=== PATIENT | female | born 1985 | race Caucasian/White ===

== ENCOUNTER 2017-11-27 07:27 | Inpatient (IN) | payer MEDICAID ==
[2017-11-27] MEDS: DIPHENHYDRAMINE 25 MG CAP PO (08:18)
[2017-11-27] MEDS: ACETAMINOPHEN 500 MG TAB PO ×2 (08:18→14:19)
[2017-11-27 08:50] LABS: ADD UMIC YES; UR AMORPHOUS CRYSTAL FEW /HPF (NONE SEEN); UR ASCORBIC ACID NEGATIVE (NEGATIVE); UR BACTERIA FEW /HPF (NONE SEEN); UR BILIRUBIN (Dip) NEGATIVE (NEGATIVE); UR BLOOD (Dip) 1+ mg/dL (NEGATIVE); UR CLARITY CLOUDY (CLEAR); UR COLOR YELLOW (YELLOW); UR GLUCOSE (Dip) NEGATIVE (NEGATIVE); UR KETONES (Dip) 1+ mg/dL (NEGATIVE); UR LEUKOCYTE ESTERASE (Dip) 3+ Leu/ul (NEGATIVE); UR NITRITE (Dip) NEGATIVE (NEGATIVE); UR RBC 1 /HPF (0-5); UR SPECIFIC GRAVITY (Dip) 1.014 (1.003-1.030); UR SQUAMOUS EPITHELIAL CELL FEW /HPF (FEW); UR TOTAL PROTEIN (Dip) 2+ mg/dl (NEGATIVE); UR UROBILINOGEN (Dip) 2+ mg/dL (NEGATIVE); UR WBC > 182 /HPF (0-5)
[2017-11-27 09:06] LABS: ABNORMAL IP MESSAGE 1; HEMATOCRIT 35.2 % (37.0-47.0); HEMOGLOBIN 12.9 g/dl (12.0-16.0); MEAN CORPUSCULAR HEMOGLOBIN 32.6 pg (29.0-33.0); MEAN CORPUSCULAR HGB CONC 36.6 g/dl (32.0-37.0); MEAN CORPUSCULAR VOLUME 88.9 fl (82.0-101.0); MEAN PLATELET VOLUME 12.2 fl (7.4-10.4); PLATELET COUNT 126 10^3/UL (140-415); RED BLOOD COUNT 3.96 10^6/ul (4.20-5.40); RED CELL DISTRIBUTION WIDTH 12.6 % (11.5-14.5)
[2017-11-27 09:06] LABS: WHITE BLOOD COUNT 15.9 10^3/ul (4.8-10.8)
[2017-11-27 09:16] LABS: ADD MAN DIFF? YES; POSITIVE DIFF @See below
[2017-11-27] MEDS: SOD CHLORIDE 0.9% 1,000 ML IV ×3 (09:34→18:06)
[2017-11-27] MEDS: CEFTRIAXONE 1 GM/50 ML (PMX) 50 ML IVPB ×2 (09:36→18:00)
[2017-11-27 09:58] LABS: BAND NEUTROPHILS #M 4.7 10^3/ul (0.0-0.6); BAND NEUTROPHILS % (M) 30 % (0-4); GIANT THROMBO% (M) 1 % (0-0); LYMPHOCYTES #M 0.4 10^3/ul (0.8-2.9); LYMPHOCYTES % (M) 3 % (15-51); MONOCYTE #M 0.3 10^3/ul (0.3-0.9); MONOCYTES % (M) 2 % (0-11); PLATELET ESTIMATE DECREASED; POLYCHROMASIA 2+ (0-0); SEG NEUT #M 11.1 10^3/ul (1.7-7.5); SEGMENTED NEUTROPHILS (M) % 65 % (39-77); SMUDGE%M 2 % (0-0)
[2017-11-27 10:41] LABS: ALANINE AMINOTRANSFERASE 32 IU/L (13-69); ALBUMIN 4.1 g/dl (3.3-4.9); ALBUMIN/GLOBULIN RATIO 1.05; ALKALINE PHOSPHATASE 95 IU/L (42-121); ANION GAP 18 (8-16); ASPARTATE AMINO TRANSFERASE 27 IU/L (15-46); BILIRUBIN,INDIRECT 0.8 mg/dl (0-1.1); BILIRUBIN,TOTAL 0.8 mg/dl (0.2-1.3); BLOOD UREA NITROGEN 13 mg/dl (7-20); CALCIUM 9.3 mg/dl (8.4-10.2); CARBON DIOXIDE 20 mmol/L (21-31); CHLORIDE 97 mmol/L (97-110); GLUCOSE 102 mg/dl (70-220); SODIUM 132 mmol/L (135-144)
[2017-11-27] MEDS: HYDROmorphONE 1 MG/ML SYG IV (14:42)
[2017-11-27] MEDS: ONDANSETRON 4 MG INJ IV (17:37)
[2017-11-27] MEDS: ACETAMINOPHEN 325 MG TAB PO ×2 (17:37→23:33)
[2017-11-27] MEDS ORDERED: NACL 0.9% 3 ML SYG IV (18:00)
[2017-11-27] MEDS ORDERED: ONDANSETRON 4 MG INJ IV (18:00)
[2017-11-28] MEDS: SOD CHLORIDE 0.9% 1,000 ML IV ×5 (01:34→20:17)
[2017-11-28 05:51] LABS: ABNORMAL IP MESSAGE 1; HEMATOCRIT 28.8 % (37.0-47.0); HEMOGLOBIN 10.2 g/dl (12.0-16.0); MEAN CORPUSCULAR HEMOGLOBIN 32.2 pg (29.0-33.0); MEAN CORPUSCULAR HGB CONC 35.4 g/dl (32.0-37.0); MEAN CORPUSCULAR VOLUME 90.9 fl (82.0-101.0); MEAN PLATELET VOLUME 12.1 fl (7.4-10.4); PLATELET COUNT 93 10^3/UL (140-415); RED BLOOD COUNT 3.17 10^6/ul (4.20-5.40); RED CELL DISTRIBUTION WIDTH 12.9 % (11.5-14.5)
[2017-11-28 05:51] LABS: WHITE BLOOD COUNT 6.2 10^3/ul (4.8-10.8)
[2017-11-28 05:57] LABS: ADD MAN DIFF? YES; POSITIVE DIFF @See below
[2017-11-28 06:23] LABS: MAGNESIUM 1.9 mg/dl (1.7-2.5)
[2017-11-28 06:23] LABS: PHOSPHORUS 3.1 mg/dl (2.5-4.9)
[2017-11-28 06:38] LABS: ALANINE AMINOTRANSFERASE 54 IU/L (13-69); ALBUMIN 2.5 g/dl (3.3-4.9); ALKALINE PHOSPHATASE 109 IU/L (42-121); ANION GAP 13 (8-16); ASPARTATE AMINO TRANSFERASE 59 IU/L (15-46); BILIRUBIN,INDIRECT 0.4 mg/dl (0-1.1); BILIRUBIN,TOTAL 0.4 mg/dl (0.2-1.3); BLOOD UREA NITROGEN 9 mg/dl (7-20); CALCIUM 7.5 mg/dl (8.4-10.2); CARBON DIOXIDE 18 mmol/L (21-31); CHLORIDE 110 mmol/L (97-110); CREATININE 0.82 mg/dl (0.44-1.00); GLUCOSE 92 mg/dl (70-220); SODIUM 138 mmol/L (135-144); TOTAL PROTEIN 5.6 g/dl (6.1-8.1)
[2017-11-28 09:12] LABS: BAND NEUTROPHILS #M 1.3 10^3/ul (0.0-0.6); BAND NEUTROPHILS % (M) 21 % (0-4); BASOPHILS % (M) 1 % (0-2); EOSINOPHILS % (M) 1 % (0-7); GIANT THROMBO% (M) 6 % (0-0); LYMPHOCYTES #M 0.3 10^3/ul (0.8-2.9); LYMPHOCYTES % (M) 5 % (15-51); PLATELET ESTIMATE DECREASED; SEG NEUT #M 4.5 10^3/ul (1.7-7.5); SEGMENTED NEUTROPHILS (M) % 72 % (39-77); SMUDGE%M 5 % (0-0)
[2017-11-28] MEDS: POTASSIUM CHLORIDE (SR) 20 MEQ TAB PO (11:48)
[2017-11-28] MEDS: ALBUTEROL 0.083% (NEB) 2.5 MG/3 ML AMP HHN ×2 (14:23→17:11)
[2017-11-28] MEDS: ACETAMINOPHEN 325 MG TAB PO ×2 (15:53→22:13)
[2017-11-28] MEDS: CEFTRIAXONE 1 GM/50 ML (PMX) 50 ML IVPB (17:37)
[2017-11-29] MEDS: SOD CHLORIDE 0.9% 1,000 ML IV ×4 (01:30→16:18)
[2017-11-29 06:24] LABS: WHITE BLOOD COUNT 4.2 10^3/ul (4.8-10.8)
[2017-11-29 06:24] LABS: ABNORMAL IP MESSAGE 1; HEMATOCRIT 29.3 % (37.0-47.0); HEMOGLOBIN 10.4 g/dl (12.0-16.0); MEAN CORPUSCULAR HEMOGLOBIN 32.5 pg (29.0-33.0); MEAN CORPUSCULAR HGB CONC 35.5 g/dl (32.0-37.0); MEAN CORPUSCULAR VOLUME 91.6 fl (82.0-101.0); MEAN PLATELET VOLUME 12.2 fl (7.4-10.4); PLATELET COUNT 101 10^3/UL (140-415)
[2017-11-29 06:26] LABS: ADD MAN DIFF? YES; POSITIVE DIFF @See below
[2017-11-29 07:05] LABS: MAGNESIUM 1.9 mg/dl (1.7-2.5)
[2017-11-29 07:05] LABS: PHOSPHORUS 3.2 mg/dl (2.5-4.9)
[2017-11-29 07:07] LABS: ANION GAP 11 (8-16); BLOOD UREA NITROGEN 4 mg/dl (7-20); CALCIUM 7.9 mg/dl (8.4-10.2); CARBON DIOXIDE 21 mmol/L (21-31); CHLORIDE 110 mmol/L (97-110); CREATININE 0.82 mg/dl (0.44-1.00); GLUCOSE 78 mg/dl (70-220); POTASSIUM 3.4 mmol/L (3.5-5.1); SODIUM 139 mmol/L (135-144)
[2017-11-29] MEDS: ACETAMINOPHEN 325 MG TAB PO ×3 (08:39→19:59)
[2017-11-29] MEDS: DOCUSATE SODIUM 100 MG CAP PO ×2 (09:01→19:59)
[2017-11-29 09:11] LABS: ANISOCYTOSIS 1+ (0-0); BAND NEUTROPHILS #M 0.1 10^3/ul (0.0-0.6); BAND NEUTROPHILS % (M) 3 % (0-4); BASOPHILS % (M) 1 % (0-2); GIANT THROMBO% (M) 7 % (0-0); LYMPHOCYTES #M 0.5 10^3/ul (0.8-2.9); LYMPHOCYTES % (M) 12 % (15-51); MONOCYTE #M 0.1 10^3/ul (0.3-0.9); MONOCYTES % (M) 3 % (0-11); PLATELET MORPHOLOGY COMMENT @See below; POLYCHROMASIA 1+ (0-0); REACTIVE LYMPHOCYTES% (M) 1 % (0-0); SEG NEUT #M 3.4 10^3/ul (1.7-7.5); SEGMENTED NEUTROPHILS (M) % 80 % (39-77); SMUDGE%M 2 % (0-0)
[2017-11-29] MEDS: POTASSIUM CHLORIDE (SR) 20 MEQ TAB PO (12:12)
[2017-11-29] MEDS: PRENATAL VITAMIN PO (12:12)
[2017-11-29 13:22] LABS: ADD UMIC NO; UR ASCORBIC ACID NEGATIVE (NEGATIVE); UR BILIRUBIN (Dip) NEGATIVE (NEGATIVE); UR BLOOD (Dip) NEGATIVE (NEGATIVE); UR CLARITY CLEAR (CLEAR); UR COLOR STRAW (YELLOW); UR GLUCOSE (Dip) NEGATIVE (NEGATIVE); UR KETONES (Dip) NEGATIVE (NEGATIVE); UR LEUKOCYTE ESTERASE (Dip) NEGATIVE Leu/ul (NEGATIVE); UR NITRITE (Dip) NEGATIVE (NEGATIVE); UR SPECIFIC GRAVITY (Dip) 1.004 (1.003-1.030); UR TOTAL PROTEIN (Dip) NEGATIVE (NEGATIVE); UR UROBILINOGEN (Dip) 1+ mg/dL (NEGATIVE)
[2017-11-29] MEDS: CEFTRIAXONE 1 GM/50 ML (PMX) 50 ML IVPB (18:11)
[2017-11-29] MEDS ORDERED: morphine 2 MG INJ (20:36)
[2017-11-29] MEDS: morphine 2 MG INJ IV (20:42)
[2017-11-30] MEDS: SOD CHLORIDE 0.9% 1,000 ML IV ×3 (05:51→19:36)
[2017-11-30] MEDS: ACETAMINOPHEN 325 MG TAB PO ×2 (05:53→14:36)
[2017-11-30 05:54] LABS: ADD MAN DIFF? NO
[2017-11-30 06:01] LABS: BASOPHILS % 0.8 % (0.0-2.0); EOSINOPHILS # 0.1 10^3/ul (0.0-0.5); EOSINOPHILS % 1.9 % (0.0-7.0); HEMATOCRIT 31.8 % (37.0-47.0); HEMOGLOBIN 11.3 g/dl (12.0-16.0); LYMPHOCYTES # 0.9 10^3/ul (0.8-2.9); LYMPHOCYTES % 17.7 % (15.0-51.0); MEAN CORPUSCULAR HEMOGLOBIN 32.1 pg (29.0-33.0); MEAN CORPUSCULAR HGB CONC 35.5 g/dl (32.0-37.0); MEAN CORPUSCULAR VOLUME 90.3 fl (82.0-101.0); MEAN PLATELET VOLUME 12.1 fl (7.4-10.4); MONOCYTE # 0.4 10^3/ul (0.3-0.9); MONOCYTES % 7.3 % (0.0-11.0); NEUTROPHIL # 3.8 10^3/ul (1.6-7.5); PLATELET COUNT 113 10^3/UL (140-415); RED BLOOD COUNT 3.52 10^6/ul (4.20-5.40); RED CELL DISTRIBUTION WIDTH 12.9 % (11.5-14.5)
[2017-11-30 06:01] LABS: WHITE BLOOD COUNT 5.3 10^3/ul (4.8-10.8)
[2017-11-30 06:12] LABS: POSITIVE DIFF @See below
[2017-11-30 06:15] LABS: ANION GAP 12 (8-16); BLOOD UREA NITROGEN 6 mg/dl (7-20); CALCIUM 8.6 mg/dl (8.4-10.2); CARBON DIOXIDE 23 mmol/L (21-31); CHLORIDE 106 mmol/L (97-110); GLUCOSE 78 mg/dl (70-220); POTASSIUM 3.7 mmol/L (3.5-5.1); SODIUM 137 mmol/L (135-144)
[2017-11-30 06:45] LABS: PHOSPHORUS 2.6 mg/dl (2.5-4.9)
[2017-11-30 06:45] LABS: MAGNESIUM 1.6 mg/dl (1.7-2.5)
[2017-11-30] MEDS: PRENATAL VITAMIN PO (08:38)
[2017-11-30] MEDS: DOCUSATE SODIUM 100 MG CAP PO ×2 (08:38→21:04)
[2017-11-30] MEDS: morphine 2 MG INJ IV (14:36)
[2017-11-30 16:15] LABS: LACTIC ACID 1.2 mmol/L (0.5-2.0)
[2017-11-30] MEDS ORDERED: MAGNESIUM SULFATE 1 GM/D5W 100 ML IVPB (16:30)
[2017-11-30] MEDS ORDERED: morphine LIQ (10 MG/5 ML) CUP PO (16:30)
[2017-11-30] MEDS ORDERED: LABETALOL HCL 20MG INJ IV ×2 (16:30→17:00)
[2017-11-30 16:33] LABS: Allen Test ACCEPTAB; Arterial Base Excess -3.2 mmol/L (-3.0-3); Arterial Blood Gas Oxygen Sat 99.2 mmHG (95.0-98.0); Arterial COHb 0.3 % (0.0-3.0); Arterial Fraction of Oxyhgb 98.8 % (93.0-99.0); Arterial HCO3 19.4 mmol/L (22.0-26.0); Arterial MetHb 0.1 % (0.0-1.5); Arterial Total Hemglobin 12.8 g/dl (12.0-18.0); MODE MASK - SIMPLE; Site Right Radial
[2017-11-30] MEDS: LABETALOL 100 MG TAB PO (16:45)
[2017-11-30] MEDS: MAGNESIUM SULFATE 1 GM/D5W 100 ML IVPB (16:51)
[2017-11-30] MEDS ORDERED: LABETALOL 200 MG TAB PO (17:00)
[2017-11-30 17:17] LABS: D-DIMER 2199.28 ng/ml (<460)
[2017-11-30 17:39] LABS: TROPONIN-I < 0.012 ng/ml (0.00-0.12)
[2017-11-30] MEDS: CEFTRIAXONE 1 GM/50 ML (PMX) 50 ML IVPB (19:39)
[2017-12-01] MEDS: SOD CHLORIDE 0.9% 1,000 ML IV ×2 (01:08→09:52)
[2017-12-01] MEDS: ACETAMINOPHEN 325 MG TAB PO ×3 (03:03→20:13)
[2017-12-01 06:27] LABS: WHITE BLOOD COUNT 5.9 10^3/ul (4.8-10.8)
[2017-12-01 06:27] LABS: HEMATOCRIT 28.1 % (37.0-47.0); HEMOGLOBIN 9.9 g/dl (12.0-16.0); MEAN CORPUSCULAR HEMOGLOBIN 31.9 pg (29.0-33.0); MEAN CORPUSCULAR HGB CONC 35.2 g/dl (32.0-37.0); MEAN CORPUSCULAR VOLUME 90.6 fl (82.0-101.0); MEAN PLATELET VOLUME 11.5 fl (7.4-10.4); PLATELET COUNT 121 10^3/UL (140-415); RED CELL DISTRIBUTION WIDTH 12.8 % (11.5-14.5)
[2017-12-01 06:49] LABS: ADD MAN DIFF? YES; POSITIVE DIFF @See below
[2017-12-01 07:02] LABS: ANION GAP 11 (8-16); BLOOD UREA NITROGEN 7 mg/dl (7-20); CALCIUM 8.5 mg/dl (8.4-10.2); CARBON DIOXIDE 24 mmol/L (21-31); CHLORIDE 106 mmol/L (97-110); CREATININE 0.82 mg/dl (0.44-1.00); GLUCOSE 86 mg/dl (70-220); MAGNESIUM 1.9 mg/dl (1.7-2.5); POTASSIUM 3.5 mmol/L (3.5-5.1); SODIUM 137 mmol/L (135-144)
[2017-12-01] MEDS: DOCUSATE SODIUM 100 MG CAP PO ×2 (08:45→20:13)
[2017-12-01] MEDS: PRENATAL VITAMIN PO (08:45)
[2017-12-01 09:36] LABS: BAND NEUTROPHILS #M 0.2 10^3/ul (0.0-0.6); BAND NEUTROPHILS % (M) 5 % (0-4); BASOPHILS % (M) 1 % (0-2); EOSINOPHILS % (M) 3 % (0-7); GIANT THROMBO% (M) 7 % (0-0); LYMPHOCYTES #M 1.7 10^3/ul (0.8-2.9); LYMPHOCYTES % (M) 30 % (15-51); MONOCYTE #M 0.4 10^3/ul (0.3-0.9); MONOCYTES % (M) 8 % (0-11); PLATELET ESTIMATE DECREASED; REACTIVE LYMPHOCYTES #M 0.1 10^3/ul (0.0-0.0); REACTIVE LYMPHOCYTES% (M) 2 % (0-0); SEGMENTED NEUTROPHILS (M) % 51 % (39-77); SMUDGE%M 4 % (0-0)
[2017-12-01] MEDS: CEFTRIAXONE 1 GM/50 ML (PMX) 50 ML IVPB (18:25)
[2017-12-02] MEDS: SOD CHLORIDE 0.9% 1,000 ML IV ×3 (01:12→17:08)
[2017-12-02 07:02] LABS: ADD MAN DIFF? NO
[2017-12-02 07:07] LABS: WHITE BLOOD COUNT 7.4 10^3/ul (4.8-10.8)
[2017-12-02 07:07] LABS: BASOPHILS % 0.5 % (0.0-2.0); EOSINOPHILS # 0.1 10^3/ul (0.0-0.5); EOSINOPHILS % 1.9 % (0.0-7.0); HEMATOCRIT 28.8 % (37.0-47.0); HEMOGLOBIN 10.2 g/dl (12.0-16.0); LYMPHOCYTES # 1.9 10^3/ul (0.8-2.9); MEAN CORPUSCULAR HEMOGLOBIN 31.7 pg (29.0-33.0); MEAN CORPUSCULAR HGB CONC 35.4 g/dl (32.0-37.0); MEAN CORPUSCULAR VOLUME 89.4 fl (82.0-101.0); MEAN PLATELET VOLUME 11.6 fl (7.4-10.4); MONOCYTE # 0.5 10^3/ul (0.3-0.9); MONOCYTES % 7.2 % (0.0-11.0); NEUTROPHIL # 4.5 10^3/ul (1.6-7.5); PLATELET COUNT 132 10^3/UL (140-415); RED BLOOD COUNT 3.22 10^6/ul (4.20-5.40); RED CELL DISTRIBUTION WIDTH 12.5 % (11.5-14.5)
[2017-12-02 07:13] LABS: POSITIVE DIFF @See below
[2017-12-02 07:24] LABS: ANION GAP 14 (8-16); CARBON DIOXIDE 21 mmol/L (21-31); CHLORIDE 106 mmol/L (97-110); CREATININE 0.69 mg/dl (0.44-1.00); GLUCOSE 84 mg/dl (70-220); POTASSIUM 3.5 mmol/L (3.5-5.1); SODIUM 137 mmol/L (135-144)
[2017-12-02 08:00] LABS: BLOOD UREA NITROGEN 6 mg/dl (7-20); CALCIUM 8.6 mg/dl (8.4-10.2)
[2017-12-02] MEDS: PRENATAL VITAMIN PO (09:27)
[2017-12-02] MEDS: DOCUSATE SODIUM 100 MG CAP PO ×2 (09:27→20:50)
[2017-12-02] MEDS: ACETAMINOPHEN 325 MG TAB PO ×2 (13:45→20:49)
[2017-12-02] MEDS: PIPER-TAZO 3.375 GM IV (PMX) 100 ML IVPB ×2 (14:05→22:23)
[2017-12-03] MEDS: SOD CHLORIDE 0.9% 1,000 ML IV ×3 (05:52→21:38)
[2017-12-03] MEDS: PIPER-TAZO 3.375 GM IV (PMX) 100 ML IVPB ×3 (05:52→21:37)
[2017-12-03] MEDS: ACETAMINOPHEN 325 MG TAB PO ×3 (05:59→18:58)
[2017-12-03 06:05] LABS: ADD MAN DIFF? NO
[2017-12-03 06:12] LABS: BASOPHIL # 0.1 10^3/ul (0.0-0.1); BASOPHILS % 0.5 % (0.0-2.0); EOSINOPHILS # 0.3 10^3/ul (0.0-0.5); EOSINOPHILS % 2.4 % (0.0-7.0); HEMATOCRIT 29.2 % (37.0-47.0); HEMOGLOBIN 10.4 g/dl (12.0-16.0); LYMPHOCYTES # 2.2 10^3/ul (0.8-2.9); LYMPHOCYTES % 19.7 % (15.0-51.0); MEAN CORPUSCULAR HEMOGLOBIN 31.6 pg (29.0-33.0); MEAN CORPUSCULAR HGB CONC 35.6 g/dl (32.0-37.0); MEAN CORPUSCULAR VOLUME 88.8 fl (82.0-101.0); MEAN PLATELET VOLUME 11.5 fl (7.4-10.4); MONOCYTE # 0.6 10^3/ul (0.3-0.9); MONOCYTES % 5.2 % (0.0-11.0); NEUTROPHIL # 7.6 10^3/ul (1.6-7.5); NEUTROPHILS % 67.4 % (39.0-77.0); PLATELET COUNT 183 10^3/UL (140-415); RED BLOOD COUNT 3.29 10^6/ul (4.20-5.40); RED CELL DISTRIBUTION WIDTH 12.3 % (11.5-14.5)
[2017-12-03 06:12] LABS: WHITE BLOOD COUNT 11.2 10^3/ul (4.8-10.8)
[2017-12-03 06:32] LABS: ANION GAP 13 (8-16); BLOOD UREA NITROGEN 8 mg/dl (7-20); CALCIUM 8.7 mg/dl (8.4-10.2); CARBON DIOXIDE 23 mmol/L (21-31); CHLORIDE 106 mmol/L (97-110); CREATININE 0.76 mg/dl (0.44-1.00); GLUCOSE 94 mg/dl (70-220); POSITIVE DIFF @See below; POTASSIUM 3.4 mmol/L (3.5-5.1); SODIUM 139 mmol/L (135-144)
[2017-12-03] MEDS: DOCUSATE SODIUM 100 MG CAP PO ×2 (09:00→20:47)
[2017-12-03] MEDS: PRENATAL VITAMIN PO (09:34)
[2017-12-04] MEDS: PIPER-TAZO 3.375 GM IV (PMX) 100 ML IVPB ×3 (05:44→21:43)
[2017-12-04] MEDS: ACETAMINOPHEN 325 MG TAB PO ×3 (05:44→20:20)
[2017-12-04 06:34] LABS: ABNORMAL IP MESSAGE 1; HEMATOCRIT 28.9 % (37.0-47.0); HEMOGLOBIN 10.5 g/dl (12.0-16.0); MEAN CORPUSCULAR HEMOGLOBIN 32.4 pg (29.0-33.0); MEAN CORPUSCULAR HGB CONC 36.3 g/dl (32.0-37.0); MEAN CORPUSCULAR VOLUME 89.2 fl (82.0-101.0); MEAN PLATELET VOLUME 10.9 fl (7.4-10.4); PLATELET COUNT 216 10^3/UL (140-415); RED BLOOD COUNT 3.24 10^6/ul (4.20-5.40); RED CELL DISTRIBUTION WIDTH 12.2 % (11.5-14.5)
[2017-12-04 06:41] LABS: ADD MAN DIFF? YES; POSITIVE DIFF @See below
[2017-12-04 07:17] LABS: ANION GAP 13 (8-16); BLOOD UREA NITROGEN 8 mg/dl (7-20); CALCIUM 8.7 mg/dl (8.4-10.2); CARBON DIOXIDE 26 mmol/L (21-31); CHLORIDE 104 mmol/L (97-110); CREATININE 0.75 mg/dl (0.44-1.00); GLUCOSE 85 mg/dl (70-220); POTASSIUM 3.7 mmol/L (3.5-5.1); SODIUM 139 mmol/L (135-144)
[2017-12-04 07:49] LABS: ANISOCYTOSIS 1+ (0-0); BAND NEUTROPHILS #M 0.1 10^3/ul (0.0-0.6); BAND NEUTROPHILS % (M) 1 % (0-4); BASOPHIL #M 0.1 10^3/ul (0.0-0.0); BASOPHILS % (M) 1 % (0-2); EOSINOPHILS % (M) 3 % (0-7); GIANT THROMBO% (M) 3 % (0-0); LYMPHOCYTES #M 1.9 10^3/ul (0.8-2.9); LYMPHOCYTES % (M) 19 % (15-51); METAMYELOCYTES #M 0.1 10^3/ul (0.0-0.0); METAMYELOCYTES %M 1 % (0-0); MONOCYTE #M 0.2 10^3/ul (0.3-0.9); MONOCYTES % (M) 2 % (0-11); PLATELET ESTIMATE NORMAL; POLYCHROMASIA 1+ (0-0); SEG NEUT #M 7.3 10^3/ul (1.6-7.5); SEGMENTED NEUTROPHILS (M) % 73 % (39-77); SMUDGE%M 8 % (0-0)
[2017-12-04] MEDS: DOCUSATE SODIUM 100 MG CAP PO ×2 (08:16→20:20)
[2017-12-04] MEDS: PRENATAL VITAMIN PO (08:16)
[2017-12-04] MEDS: SOD CHLORIDE 0.9% 1,000 ML IV ×3 (09:08→22:28)
[2017-12-05] MEDS: SOD CHLORIDE 0.9% 1,000 ML IV ×2 (03:12→13:03)
[2017-12-05] MEDS: PIPER-TAZO 3.375 GM IV (PMX) 100 ML IVPB ×3 (05:36→21:14)
[2017-12-05] MEDS: ACETAMINOPHEN 325 MG TAB PO ×3 (05:42→18:51)
[2017-12-05 06:23] LABS: ADD MAN DIFF? NO
[2017-12-05 06:37] LABS: WHITE BLOOD COUNT 10.6 10^3/ul (4.8-10.8)
[2017-12-05 06:37] LABS: BASOPHIL # 0.1 10^3/ul (0.0-0.1); BASOPHILS % 0.5 % (0.0-2.0); EOSINOPHILS # 0.2 10^3/ul (0.0-0.5); EOSINOPHILS % 1.7 % (0.0-7.0); HEMOGLOBIN 10.3 g/dl (12.0-16.0); LYMPHOCYTES # 1.7 10^3/ul (0.8-2.9); LYMPHOCYTES % 16.1 % (15.0-51.0); MEAN CORPUSCULAR HEMOGLOBIN 32.1 pg (29.0-33.0); MEAN CORPUSCULAR HGB CONC 35.5 g/dl (32.0-37.0); MEAN CORPUSCULAR VOLUME 90.3 fl (82.0-101.0); MEAN PLATELET VOLUME 10.8 fl (7.4-10.4); MONOCYTE # 0.5 10^3/ul (0.3-0.9); MONOCYTES % 4.5 % (0.0-11.0); NEUTROPHIL # 7.7 10^3/ul (1.6-7.5); NEUTROPHILS % 73.1 % (39.0-77.0); PLATELET COUNT 262 10^3/UL (140-415); RED BLOOD COUNT 3.21 10^6/ul (4.20-5.40); RED CELL DISTRIBUTION WIDTH 12.2 % (11.5-14.5)
[2017-12-05 06:55] LABS: MAGNESIUM 1.9 mg/dl (1.7-2.5)
[2017-12-05 06:55] LABS: PHOSPHORUS 4.4 mg/dl (2.5-4.9)
[2017-12-05 07:02] LABS: ANION GAP 15 (8-16); BLOOD UREA NITROGEN 10 mg/dl (7-20); CALCIUM 8.9 mg/dl (8.4-10.2); CARBON DIOXIDE 24 mmol/L (21-31); CHLORIDE 103 mmol/L (97-110); CREATININE 0.83 mg/dl (0.44-1.00); GLUCOSE 88 mg/dl (70-220); POTASSIUM 4.2 mmol/L (3.5-5.1); SODIUM 138 mmol/L (135-144)
[2017-12-05] MEDS: DOCUSATE SODIUM 100 MG CAP PO ×2 (08:42→21:13)
[2017-12-05] MEDS: PRENATAL VITAMIN PO (08:42)
[2017-12-06] MEDS: SOD CHLORIDE 0.9% 1,000 ML IV ×3 (03:35→18:50)
[2017-12-06] MEDS: PIPER-TAZO 3.375 GM IV (PMX) 100 ML IVPB ×3 (06:37→21:12)
[2017-12-06] MEDS: PRENATAL VITAMIN PO (09:04)
[2017-12-06] MEDS: DOCUSATE SODIUM 100 MG CAP PO ×2 (09:04→21:12)
[2017-12-06] MEDS: ACETAMINOPHEN 325 MG TAB PO ×2 (14:33→21:16)
[2017-12-07] MEDS: SOD CHLORIDE 0.9% 1,000 ML IV ×3 (05:16→19:22)
[2017-12-07] MEDS: PIPER-TAZO 3.375 GM IV (PMX) 100 ML IVPB (05:17)
[2017-12-07] MEDS: PRENATAL VITAMIN PO (09:03)
[2017-12-07] MEDS: DOCUSATE SODIUM 100 MG CAP PO ×2 (09:03→21:25)
[2017-12-07] MEDS: ACETAMINOPHEN 325 MG TAB PO ×2 (10:29→17:48)
[2017-12-07] MEDS: AMOXICILLIN 500 MG CAP PO ×2 (14:53→21:25)
[2017-12-08] MEDS: AMOXICILLIN 500 MG CAP PO (06:02)
[2017-12-08] MEDS: SOD CHLORIDE 0.9% 1,000 ML IV ×2 (06:28→09:12)
[2017-12-08] MEDS: DOCUSATE SODIUM 100 MG CAP PO (09:12)
[2017-12-08] MEDS: PRENATAL VITAMIN PO (09:12)
[2017-12-08] MEDS: ACETAMINOPHEN 325 MG TAB PO (09:12)
== END 2017-12-08 13:10 | disposition home or self-care (01) | DRG 781 ==
LOC: MS2 12-04 10:41 → FTE 07:27 → MS2 17:24
DX: O98.811 Other maternal infectious and parasitic diseases complicating pregnancy, first trimester (principal); A41.51 Sepsis due to Escherichia coli [E. coli]; A41.81 Sepsis due to Enterococcus; B37.7 Candidal sepsis; N13.6 Pyonephrosis; J45.909 Unspecified asthma, uncomplicated; Z3A.13 13 weeks gestation of pregnancy; O99.511 Diseases of the respiratory system complicating pregnancy, first trimester; O34.81 Maternal care for other abnormalities of pelvic organs, first trimester; N83.202 Unspecified ovarian cyst, left side
CPT/HCPCS: 36415; 36600; 72195; 74181; 76705; 76775; 76805; 80048; 80053; 81001; 81003; 82803; 82962; 83605; 83735; 84100; 84484; 84702; 85025; 85378; 86900; 86901; 87040; 87086; 87400; 93005; 94640; 94664; 96361; 96374; 96375; 99285-25

== ENCOUNTER 2017-12-23 03:38 | Emergency (ER) | payer OTHER, MEDICAID | END 2017-12-23 04:31 | disposition home or self-care (01) | LOC: E/R 03:38 | DX: O99.89 Other specified diseases and conditions complicating pregnancy, childbirth and the puerperium (principal); O10.012 Pre-existing essential hypertension complicating pregnancy, second trimester; R51 Headache; Z3A.17 17 weeks gestation of pregnancy | CPT/HCPCS: 99283 ==

== ENCOUNTER 2018-04-08 13:01 | Outpatient (CLI) | payer OTHER, MEDICAID ==
[2018-04-08 13:32] LABS: ADD MAN DIFF? NO
[2018-04-08 13:36] LABS: WHITE BLOOD COUNT 8.8 10^3/ul (4.8-10.8)
[2018-04-08 13:36] LABS: BASOPHIL # 0.1 10^3/ul (0.0-0.1); BASOPHILS % 0.7 % (0.0-2.0); EOSINOPHILS # 0.2 10^3/ul (0.0-0.5); EOSINOPHILS % 2.2 % (0.0-7.0); HEMATOCRIT 34.1 % (37.0-47.0); HEMOGLOBIN 11.5 g/dl (12.0-16.0); LYMPHOCYTES # 1.7 10^3/ul (0.8-2.9); LYMPHOCYTES % 19.8 % (15.0-51.0); MEAN CORPUSCULAR HEMOGLOBIN 30.7 pg (29.0-33.0); MEAN CORPUSCULAR HGB CONC 33.7 g/dl (32.0-37.0); MEAN CORPUSCULAR VOLUME 91.2 fl (82.0-101.0); MEAN PLATELET VOLUME 12.3 fl (7.4-10.4); MONOCYTE # 0.6 10^3/ul (0.3-0.9); MONOCYTES % 6.7 % (0.0-11.0); NEUTROPHIL # 5.9 10^3/ul (1.6-7.5); NEUTROPHILS % 67.3 % (39.0-77.0); PLATELET COUNT 144 10^3/UL (140-415); RED BLOOD COUNT 3.74 10^6/ul (4.20-5.40); RED CELL DISTRIBUTION WIDTH 14.5 % (11.5-14.5)
[2018-04-08 13:40] LABS: ADD UMIC NO; UR ASCORBIC ACID 20 mg/dL (NEGATIVE); UR BILIRUBIN (Dip) NEGATIVE (NEGATIVE); UR BLOOD (Dip) NEGATIVE (NEGATIVE); UR CLARITY CLEAR (CLEAR); UR COLOR YELLOW (YELLOW); UR GLUCOSE (Dip) NEGATIVE (NEGATIVE); UR KETONES (Dip) NEGATIVE (NEGATIVE); UR LEUKOCYTE ESTERASE (Dip) NEGATIVE Leu/ul (NEGATIVE); UR NITRITE (Dip) NEGATIVE (NEGATIVE); UR SPECIFIC GRAVITY (Dip) 1.017 (1.003-1.030); UR TOTAL PROTEIN (Dip) NEGATIVE (NEGATIVE); UR UROBILINOGEN (Dip) NEGATIVE (NEGATIVE)
[2018-04-08 13:56] LABS: INR 0.88; PT RATIO 0.9
[2018-04-08 13:57] LABS: PARTIAL THROMBOPLASTIN TIME 24.7 Sec (25.0-35.0)
[2018-04-08 13:59] LABS: ALANINE AMINOTRANSFERASE 14 IU/L (13-69); ALBUMIN 3.5 g/dl (3.3-4.9); ALBUMIN/GLOBULIN RATIO 0.97; ALKALINE PHOSPHATASE 108 IU/L (42-121); ANION GAP 12 (8-16); ASPARTATE AMINO TRANSFERASE 14 IU/L (15-46); BILIRUBIN,INDIRECT 0.3 mg/dl (0-1.1); BILIRUBIN,TOTAL 0.3 mg/dl (0.2-1.3); BLOOD UREA NITROGEN 9 mg/dl (7-20); CALCIUM 9.2 mg/dl (8.4-10.2); CARBON DIOXIDE 24 mmol/L (21-31); CHLORIDE 109 mmol/L (97-110); CREATININE 0.61 mg/dl (0.44-1.00); GLUCOSE 115 mg/dl (70-220); POTASSIUM 3.7 mmol/L (3.5-5.1); SODIUM 141 mmol/L (135-144); TOTAL PROTEIN 7.1 g/dl (6.1-8.1); URIC ACID 4.3 mg/dl (3.1-7.9)
[2018-04-08] MEDS: ACETAMINOPHEN 325 MG TAB PO (15:06)
== END 2018-04-08 15:07 | disposition home or self-care (01) ==
LOC: OBT 13:01 → L-D 13:01 → OBT 15:07
DX: O26.893 Other specified pregnancy related conditions, third trimester (principal); R03.0 Elevated blood-pressure reading, without diagnosis of hypertension; Z3A.31 31 weeks gestation of pregnancy
CPT/HCPCS: 76817; 76818; 80053; 81003; 84560; 85025; 85610; 85730

== ENCOUNTER 2018-04-09 19:10 | Outpatient (CLI) | payer OTHER ==
[2018-04-09 20:19] LABS: COLLECTION PERIOD 24 hrs
[2018-04-09 21:01] LABS: VOLUME 1275 mls
[2018-04-09 21:02] LABS: COLLECTION PERIOD 24 hrs; CREATININE CLEARANCE 79.7 mls/min (84.0-162.0); SCRET 0.61 mg/dl (0.44-1.00); VOLUME 1275 ml/24hrs
== END 2018-04-09 20:30 | disposition home or self-care (01) ==
LOC: OBT 19:10 → L-D 19:12 → OBT 20:30
DX: O13.3 Gestational [pregnancy-induced] hypertension without significant proteinuria, third trimester (principal); Z3A.31 31 weeks gestation of pregnancy
CPT/HCPCS: 82575; 84156

== ENCOUNTER 2018-04-12 10:05 | Inpatient (IN) | payer OTHER, MEDICAID ==
[2018-04-12 11:21] LABS: ADD MAN DIFF? NO
[2018-04-12 11:24] LABS: BASOPHILS % 0.4 % (0.0-2.0); EOSINOPHILS # 0.2 10^3/ul (0.0-0.5); EOSINOPHILS % 2.1 % (0.0-7.0); HEMATOCRIT 33.2 % (37.0-47.0); LYMPHOCYTES # 1.8 10^3/ul (0.8-2.9); LYMPHOCYTES % 21.5 % (15.0-51.0); MEAN CORPUSCULAR HEMOGLOBIN 29.6 pg (29.0-33.0); MEAN CORPUSCULAR HGB CONC 33.1 g/dl (32.0-37.0); MEAN CORPUSCULAR VOLUME 89.2 fl (82.0-101.0); MEAN PLATELET VOLUME 12.5 fl (7.4-10.4); MONOCYTE # 0.5 10^3/ul (0.3-0.9); MONOCYTES % 6.4 % (0.0-11.0); NEUTROPHIL # 5.5 10^3/ul (1.6-7.5); NEUTROPHILS % 66.9 % (39.0-77.0); PLATELET COUNT 129 10^3/UL (140-415); RED BLOOD COUNT 3.72 10^6/ul (4.20-5.40); RED CELL DISTRIBUTION WIDTH 14.8 % (11.5-14.5)
[2018-04-12 11:24] LABS: WHITE BLOOD COUNT 8.1 10^3/ul (4.8-10.8)
[2018-04-12 11:31] LABS: ADD UMIC YES; UR ASCORBIC ACID 40 mg/dL (NEGATIVE); UR BILIRUBIN (Dip) NEGATIVE (NEGATIVE); UR BLOOD (Dip) NEGATIVE (NEGATIVE); UR CLARITY SLIGHTLY CLOUDY (CLEAR); UR COLOR YELLOW (YELLOW); UR GLUCOSE (Dip) NEGATIVE (NEGATIVE); UR KETONES (Dip) 1+ mg/dL (NEGATIVE); UR LEUKOCYTE ESTERASE (Dip) NEGATIVE Leu/ul (NEGATIVE); UR MUCUS FEW /HPF (NONE SEEN); UR NITRITE (Dip) NEGATIVE (NEGATIVE); UR RBC 1 /HPF (0-5); UR SPECIFIC GRAVITY (Dip) 1.024 (1.003-1.030); UR SQUAMOUS EPITHELIAL CELL MODERATE /HPF (FEW); UR TOTAL PROTEIN (Dip) 1+ mg/dl (NEGATIVE); UR UROBILINOGEN (Dip) 1+ mg/dL (NEGATIVE); UR WBC 2 /HPF (0-5)
[2018-04-12 11:44] LABS: INR 0.93; PROTIME 12.5 Sec (11.9-14.9)
[2018-04-12 11:45] LABS: ALANINE AMINOTRANSFERASE 15 IU/L (13-69); ALBUMIN 3.7 g/dl (3.3-4.9); ALBUMIN/GLOBULIN RATIO 1.02; ALKALINE PHOSPHATASE 124 IU/L (42-121); ANION GAP 12 (8-16); ASPARTATE AMINO TRANSFERASE 15 IU/L (15-46); BILIRUBIN,INDIRECT 0.6 mg/dl (0-1.1); BILIRUBIN,TOTAL 0.6 mg/dl (0.2-1.3); BLOOD UREA NITROGEN 8 mg/dl (7-20); CALCIUM 8.1 mg/dl (8.4-10.2); CARBON DIOXIDE 21 mmol/L (21-31); CHLORIDE 108 mmol/L (97-110); CREATININE 0.55 mg/dl (0.44-1.00); GLUCOSE 80 mg/dl (70-220); PARTIAL THROMBOPLASTIN TIME 26.4 Sec (25.0-35.0); POTASSIUM 3.4 mmol/L (3.5-5.1); SODIUM 138 mmol/L (135-144); TOTAL PROTEIN 7.3 g/dl (6.1-8.1); URIC ACID 4.9 mg/dl (3.1-7.9)
[2018-04-12] MEDS ORDERED: PRENATAL VITAMIN PO (12:30)
[2018-04-12] MEDS: LACTATED RINGER'S 1,000 ML IV ×2 (12:43→23:28)
[2018-04-12] MEDS: LABETALOL 100 MG TAB PO ×2 (12:56→20:41)
[2018-04-12] MEDS: MAGNESIUM SULFATE 4 GM/100 ML 100 ML IVPB (13:48)
[2018-04-12] MEDS: BETAMET NA PHOS/AC(6 MG/ML) 5ML INJ IM (14:00)
[2018-04-12] MEDS: FERROUS SULFATE (EC) 325 MG TAB PO (14:03)
[2018-04-12] MEDS: PRENATAL VITAMIN PO (14:03)
[2018-04-12] MEDS: DOCUSATE SODIUM 100 MG CAP PO (14:03)
[2018-04-12] MEDS: MAGNESIUM SULFATE 20 GM/500 ML 500 ML IV ×2 (14:09→23:30)
[2018-04-12 17:06] LABS: RAPID PLASMA REAGIN NONREACTIVE (NR)
[2018-04-12 18:57] LABS: MAGNESIUM 5.3 mg/dl (1.7-2.5)
[2018-04-13 01:30] LABS: MAGNESIUM 6.6 mg/dl (1.7-2.5)
[2018-04-13 07:13] LABS: MAGNESIUM 6.8 mg/dl (1.7-2.5)
[2018-04-13] MEDS: ACETAMINOPHEN 325 MG TAB PO (08:19)
[2018-04-13] MEDS: DOCUSATE SODIUM 100 MG CAP PO (09:00)
[2018-04-13] MEDS: FERROUS SULFATE (EC) 325 MG TAB PO (09:39)
[2018-04-13] MEDS: PRENATAL VITAMIN PO (09:40)
[2018-04-13] MEDS: LABETALOL 100 MG TAB PO ×2 (09:40→21:19)
[2018-04-13] MEDS: LACTATED RINGER'S 1,000 ML IV ×2 (11:52→12:01)
[2018-04-13 11:57] LABS: ADD MAN DIFF? NO
[2018-04-13 12:11] LABS: BASOPHILS % 0.4 % (0.0-2.0); EOSINOPHILS % 0.2 % (0.0-7.0); HEMATOCRIT 31.5 % (37.0-47.0); HEMOGLOBIN 10.5 g/dl (12.0-16.0); LYMPHOCYTES # 1.4 10^3/ul (0.8-2.9); LYMPHOCYTES % 13.5 % (15.0-51.0); MEAN CORPUSCULAR HEMOGLOBIN 30.3 pg (29.0-33.0); MEAN CORPUSCULAR HGB CONC 33.3 g/dl (32.0-37.0); MEAN CORPUSCULAR VOLUME 90.8 fl (82.0-101.0); MEAN PLATELET VOLUME 12.3 fl (7.4-10.4); MONOCYTE # 0.8 10^3/ul (0.3-0.9); MONOCYTES % 7.4 % (0.0-11.0); NEUTROPHIL # 7.9 10^3/ul (1.6-7.5); NEUTROPHILS % 76.1 % (39.0-77.0); NUCLEATED RED BLOOD CELLS% 0.2 /100WBC (0.0-0.0); PLATELET COUNT 131 10^3/UL (140-415); RED BLOOD COUNT 3.47 10^6/ul (4.20-5.40); RED CELL DISTRIBUTION WIDTH 14.9 % (11.5-14.5)
[2018-04-13 12:11] LABS: WHITE BLOOD COUNT 10.3 10^3/ul (4.8-10.8)
[2018-04-13] MEDS: BETAMET NA PHOS/AC(6 MG/ML) 5ML INJ IM (14:04)
[2018-04-13 14:22] LABS: COLLECTION PERIOD 24 hrs
[2018-04-13] MEDS ORDERED: ALBUTEROL HFA 8 GM INHALER INH (15:30)
[2018-04-13 15:38] LABS: CREATININE,URINE RANDOM 22.73 mg/dl (20-320)
[2018-04-13 16:08] LABS: COLLECTION PERIOD 24 hrs; CREATININE CLEARANCE 134.9 mls/min (84.0-162.0); SCRET 0.55 mg/dl (0.44-1.00); VOLUME 4700 ml/24hrs; VOLUME 4700 mls
[2018-04-14] MEDS: LACTATED RINGER'S 1,000 ML IV ×2 (04:01→04:21)
[2018-04-14] MEDS: LABETALOL 100 MG TAB PO ×2 (10:02→21:09)
[2018-04-14] MEDS: PRENATAL VITAMIN PO (11:36)
[2018-04-14] MEDS: FERROUS SULFATE (EC) 325 MG TAB PO (11:36)
[2018-04-14] MEDS: DOCUSATE SODIUM 100 MG CAP PO (11:36)
[2018-04-14 13:23] LABS: ADD MAN DIFF? NO
[2018-04-14 13:25] LABS: WHITE BLOOD COUNT 10.1 10^3/ul (4.8-10.8)
[2018-04-14 13:25] LABS: BASOPHILS % 0.4 % (0.0-2.0); EOSINOPHILS % 0.3 % (0.0-7.0); HEMATOCRIT 31.1 % (37.0-47.0); HEMOGLOBIN 10.4 g/dl (12.0-16.0); LYMPHOCYTES % 19.7 % (15.0-51.0); MEAN CORPUSCULAR HEMOGLOBIN 30.8 pg (29.0-33.0); MEAN CORPUSCULAR HGB CONC 33.4 g/dl (32.0-37.0); MEAN PLATELET VOLUME 12.4 fl (7.4-10.4); MONOCYTE # 0.6 10^3/ul (0.3-0.9); MONOCYTES % 5.7 % (0.0-11.0); NEUTROPHILS % 69.5 % (39.0-77.0); NUCLEATED RED BLOOD CELLS% 0.4 /100WBC (0.0-0.0); PLATELET COUNT 135 10^3/UL (140-415); RED BLOOD COUNT 3.38 10^6/ul (4.20-5.40); RED CELL DISTRIBUTION WIDTH 15.3 % (11.5-14.5)
[2018-04-15] MEDS: FERROUS SULFATE (EC) 325 MG TAB PO (08:54)
[2018-04-15] MEDS: PRENATAL VITAMIN PO (08:54)
[2018-04-15] MEDS: DOCUSATE SODIUM 100 MG CAP PO (08:54)
[2018-04-15] MEDS: LABETALOL 100 MG TAB PO ×2 (08:55→21:24)
[2018-04-16] MEDS: LABETALOL 100 MG TAB PO (08:42)
[2018-04-16] MEDS: FERROUS SULFATE (EC) 325 MG TAB PO (08:42)
[2018-04-16] MEDS: PRENATAL VITAMIN PO (08:42)
== END 2018-04-16 18:11 | disposition home or self-care (01) | DRG 781 ==
LOC: OBT 10:05 → L-D 10:05 → OBT 11:21 → L-D 11:21
DX: O13.3 Gestational [pregnancy-induced] hypertension without significant proteinuria, third trimester (principal); O14.23 HELLP syndrome (HELLP), third trimester; O41.03X0 Oligohydramnios, third trimester, not applicable or unspecified; Z3A.32 32 weeks gestation of pregnancy
CPT/HCPCS: 36415; 76818; 80053; 81001; 82575; 83735; 84156; 84560; 85025; 85610; 85730; 86592; 86850; 86900; 86901

== ENCOUNTER 2018-04-20 09:51 | Outpatient (CLI) | payer OTHER ==
[2018-04-20] MEDS: DEXTROSE 5%-LR 1,000 ML IV (11:32)
[2018-04-20 15:29] LABS: ADD UMIC NO; UR ASCORBIC ACID NEGATIVE (NEGATIVE); UR BILIRUBIN (Dip) NEGATIVE (NEGATIVE); UR BLOOD (Dip) NEGATIVE (NEGATIVE); UR CLARITY CLEAR (CLEAR); UR COLOR STRAW (YELLOW); UR GLUCOSE (Dip) NEGATIVE (NEGATIVE); UR KETONES (Dip) NEGATIVE (NEGATIVE); UR LEUKOCYTE ESTERASE (Dip) NEGATIVE Leu/ul (NEGATIVE); UR NITRITE (Dip) NEGATIVE (NEGATIVE); UR SPECIFIC GRAVITY (Dip) 1.005 (1.003-1.030); UR TOTAL PROTEIN (Dip) NEGATIVE (NEGATIVE); UR UROBILINOGEN (Dip) NEGATIVE (NEGATIVE)
[2018-04-20 15:45] LABS: RUPTURE FETAL MEMBRANES NEGATIVE (NEGATIVE)
[2018-04-20 15:52] LABS: ABNORMAL IP MESSAGE 1; HEMATOCRIT 33.2 % (37.0-47.0); HEMOGLOBIN 11.2 g/dl (12.0-16.0); MEAN CORPUSCULAR HEMOGLOBIN 30.6 pg (29.0-33.0); MEAN CORPUSCULAR HGB CONC 33.7 g/dl (32.0-37.0); MEAN CORPUSCULAR VOLUME 90.7 fl (82.0-101.0); MEAN PLATELET VOLUME 12.6 fl (7.4-10.4); PLATELET COUNT 132 10^3/UL (140-415); RED BLOOD COUNT 3.66 10^6/ul (4.20-5.40); RED CELL DISTRIBUTION WIDTH 15.5 % (11.5-14.5)
[2018-04-20 15:52] LABS: WHITE BLOOD COUNT 8.5 10^3/ul (4.8-10.8)
[2018-04-20 15:56] LABS: ADD MAN DIFF? YES; POSITIVE DIFF @See below
[2018-04-20 16:07] LABS: ALANINE AMINOTRANSFERASE 13 IU/L (13-69); ALBUMIN 3.4 g/dl (3.3-4.9); ALBUMIN/GLOBULIN RATIO 1.03; ALKALINE PHOSPHATASE 125 IU/L (42-121); ANION GAP 12 (8-16); ASPARTATE AMINO TRANSFERASE 13 IU/L (15-46); BILIRUBIN,INDIRECT 0.6 mg/dl (0-1.1); BILIRUBIN,TOTAL 0.6 mg/dl (0.2-1.3); BLOOD UREA NITROGEN 8 mg/dl (7-20); CARBON DIOXIDE 20 mmol/L (21-31); CHLORIDE 107 mmol/L (97-110); CREATININE 0.57 mg/dl (0.44-1.00); GLUCOSE 73 mg/dl (70-220); POTASSIUM 3.9 mmol/L (3.5-5.1); SODIUM 135 mmol/L (135-144); TOTAL PROTEIN 6.7 g/dl (6.1-8.1)
[2018-04-20 16:09] LABS: URIC ACID 5.2 mg/dl (3.1-7.9)
[2018-04-20 16:27] LABS: BAND NEUTROPHILS #M 0.4 10^3/ul (0.0-0.6); BAND NEUTROPHILS % (M) 5 % (0-4); BASOPHILS % (M) 1 % (0-2); LYMPHOCYTES #M 2.3 10^3/ul (0.8-2.9); LYMPHOCYTES % (M) 28 % (15-51); METAMYELOCYTES #M 0.2 10^3/ul (0.0-0.0); METAMYELOCYTES %M 3 % (0-0); MONOCYTE #M 0.7 10^3/ul (0.3-0.9); MONOCYTES % (M) 9 % (0-11); MYELOCYTES #M 0.2 10^3/ul (0.0-0.0); MYELOCYTES % (M) 3 % (0-0); PLATELET ESTIMATE NORMAL; REACTIVE LYMPHOCYTES #M 0.1 10^3/ul (0.0-0.0); REACTIVE LYMPHOCYTES% (M) 2 % (0-0); SEG NEUT #M 4.2 10^3/ul (1.6-7.5); SEGMENTED NEUTROPHILS (M) % 49 % (39-77); SMUDGE%M 2 % (0-0)
== END 2018-04-20 16:18 | disposition home or self-care (01) ==
LOC: OBT 09:51 → L-D 09:51 → OBT 16:18
DX: O14.93 Unspecified pre-eclampsia, third trimester (principal); Z3A.33 33 weeks gestation of pregnancy
CPT/HCPCS: 76818; 80053; 81003; 84112; 84560; 85025

== ENCOUNTER 2018-04-28 10:58 | Outpatient (CLI) | payer OTHER | END 2018-04-28 13:24 | disposition left against medical advice (07) | LOC: OBT 10:58 → L-D 10:58 → OBT 13:24 | DX: Z53.21 Procedure and treatment not carried out due to patient leaving prior to being seen by health care provider (principal) | CPT/HCPCS: 76818 ==

== ENCOUNTER 2018-05-08 11:16 | Outpatient (CLI) | payer OTHER ==
[2018-05-08 12:36] LABS: ADD MAN DIFF? NO
[2018-05-08 12:39] LABS: BASOPHILS % 0.4 % (0.0-2.0); EOSINOPHILS # 0.1 10^3/ul (0.0-0.5); EOSINOPHILS % 1.3 % (0.0-7.0); HEMATOCRIT 32.8 % (37.0-47.0); HEMOGLOBIN 10.9 g/dl (12.0-16.0); LYMPHOCYTES # 1.5 10^3/ul (0.8-2.9); LYMPHOCYTES % 20.9 % (15.0-51.0); MEAN CORPUSCULAR HEMOGLOBIN 30.4 pg (29.0-33.0); MEAN CORPUSCULAR HGB CONC 33.2 g/dl (32.0-37.0); MEAN CORPUSCULAR VOLUME 91.4 fl (82.0-101.0); MEAN PLATELET VOLUME 12.4 fl (7.4-10.4); MONOCYTE # 0.6 10^3/ul (0.3-0.9); MONOCYTES % 8.4 % (0.0-11.0); NEUTROPHIL # 4.8 10^3/ul (1.6-7.5); NEUTROPHILS % 67.2 % (39.0-77.0); PLATELET COUNT 133 10^3/UL (140-415); RED BLOOD COUNT 3.59 10^6/ul (4.20-5.40); RED CELL DISTRIBUTION WIDTH 16.6 % (11.5-14.5)
[2018-05-08 12:39] LABS: WHITE BLOOD COUNT 7.1 10^3/ul (4.8-10.8)
[2018-05-08 12:50] LABS: ADD UMIC YES; UR ASCORBIC ACID NEGATIVE (NEGATIVE); UR BILIRUBIN (Dip) NEGATIVE (NEGATIVE); UR BLOOD (Dip) 1+ mg/dL (NEGATIVE); UR CLARITY CLEAR (CLEAR); UR COLOR YELLOW (YELLOW); UR GLUCOSE (Dip) NEGATIVE (NEGATIVE); UR KETONES (Dip) NEGATIVE (NEGATIVE); UR LEUKOCYTE ESTERASE (Dip) NEGATIVE Leu/ul (NEGATIVE); UR NITRITE (Dip) NEGATIVE (NEGATIVE); UR RBC 1 /HPF (0-5); UR SPECIFIC GRAVITY (Dip) 1.013 (1.003-1.030); UR TOTAL PROTEIN (Dip) NEGATIVE (NEGATIVE); UR UROBILINOGEN (Dip) 1+ mg/dL (NEGATIVE); UR WBC 1 /HPF (0-5)
[2018-05-08 12:57] LABS: ALANINE AMINOTRANSFERASE 21 IU/L (13-69); ALBUMIN 3.3 g/dl (3.3-4.9); ALBUMIN/GLOBULIN RATIO 0.94; ALKALINE PHOSPHATASE 148 IU/L (42-121); ANION GAP 11 (8-16); ASPARTATE AMINO TRANSFERASE 16 IU/L (15-46); BILIRUBIN,INDIRECT 0.6 mg/dl (0-1.1); BILIRUBIN,TOTAL 0.6 mg/dl (0.2-1.3); BLOOD UREA NITROGEN 7 mg/dl (7-20); CALCIUM 8.2 mg/dl (8.4-10.2); CARBON DIOXIDE 18 mmol/L (21-31); CHLORIDE 111 mmol/L (97-110); CREATININE 0.56 mg/dl (0.44-1.00); GLUCOSE 102 mg/dl (70-220); POTASSIUM 3.4 mmol/L (3.5-5.1); SODIUM 137 mmol/L (135-144); TOTAL PROTEIN 6.8 g/dl (6.1-8.1); URIC ACID 5.4 mg/dl (3.1-7.9)
[2018-05-08 13:13] LABS: PROTIME 12.2 Sec (11.9-14.9)
[2018-05-08 13:14] LABS: PARTIAL THROMBOPLASTIN TIME 25.2 Sec (25.0-35.0)
== END 2018-05-08 15:45 | disposition home or self-care (01) ==
LOC: OBT 11:16 → L-D 11:17 → OBT 15:45
DX: O13.3 Gestational [pregnancy-induced] hypertension without significant proteinuria, third trimester (principal); O36.8330 Maternal care for abnormalities of the fetal heart rate or rhythm, third trimester, not applicable or unspecified; Z3A.36 36 weeks gestation of pregnancy
CPT/HCPCS: 76818; 80053; 81001; 84560; 85025; 85384; 85610; 85730; 87086

== ENCOUNTER 2018-05-17 07:37 | Inpatient (IN) | payer OTHER ==
[~2018-05-17 07:37] MED LIST: EPHEDrine SULFATE 50 MG/5 ML SYG
[2018-05-17] MEDS ORDERED: MISOPROSTOL 200 MCG TAB PR ×2 (08:00→11:00)
[2018-05-17] MEDS ORDERED: CARBOPROST 250 MCG INJ IM ×2 (08:00→11:00)
[2018-05-17] MEDS ORDERED: METHYLERGONOVINE 0.2 MG INJ IM ×2 (08:00→11:00)
[2018-05-17] MEDS ORDERED: OXYTOCIN 30 UNITS/LR 500 ML IV ×4 (08:00→11:00)
[2018-05-17] MEDS ORDERED: CEFAZOLIN 2 GM/50 ML (PMX) 50 ML IV (08:00)
[2018-05-17 08:15] LABS: ADD MAN DIFF? NO
[2018-05-17 08:18] LABS: WHITE BLOOD COUNT 8.3 10^3/ul (4.8-10.8)
[2018-05-17 08:18] LABS: ABNORMAL IP MESSAGE 1; BASOPHIL # 0.1 10^3/ul (0.0-0.1); BASOPHILS % 0.7 % (0.0-2.0); EOSINOPHILS # 0.1 10^3/ul (0.0-0.5); EOSINOPHILS % 1.4 % (0.0-7.0); HEMATOCRIT 37.6 % (37.0-47.0); HEMOGLOBIN 12.6 g/dl (12.0-16.0); LYMPHOCYTES # 2.1 10^3/ul (0.8-2.9); LYMPHOCYTES % 25.4 % (15.0-51.0); MEAN CORPUSCULAR HEMOGLOBIN 30.1 pg (29.0-33.0); MEAN CORPUSCULAR HGB CONC 33.5 g/dl (32.0-37.0); MEAN PLATELET VOLUME 12.9 fl (7.4-10.4); MONOCYTE # 0.5 10^3/ul (0.3-0.9); MONOCYTES % 6.5 % (0.0-11.0); NEUTROPHIL # 5.3 10^3/ul (1.6-7.5); NEUTROPHILS % 64.3 % (39.0-77.0); PLATELET COUNT 153 10^3/UL (140-415); RED BLOOD COUNT 4.18 10^6/ul (4.20-5.40); RED CELL DISTRIBUTION WIDTH 16.1 % (11.5-14.5)
[2018-05-17 08:21] LABS: POSITIVE DIFF @See below
[2018-05-17] MEDS: LACTATED RINGER'S 1,000 ML IV ×2 (08:28→15:57)
[2018-05-17 08:37] LABS: INR 0.88; PT RATIO 0.9
[2018-05-17 08:38] LABS: PARTIAL THROMBOPLASTIN TIME 25.8 Sec (25.0-35.0)
[2018-05-17] MEDS: METOCLOPRAMIDE 10 MG INJ IV (08:59)
[2018-05-17] MEDS: FAMOTIDINE 20 MG INJ IV (08:59)
[2018-05-17] MEDS: CITRIC ACID/SODIUM CITRATE 15 ML CUP PO (08:59)
[2018-05-17] MEDS ORDERED: BUPIVACAINE 0.75%/DEXT (SPINAL) 2 ML INJ (09:22)
[2018-05-17] MEDS ORDERED: FENTAnyl 50 MCG/ML VIAL (09:22)
[2018-05-17] MEDS: CEFAZOLIN 2 GM/50 ML (PMX) 50 ML IVPB ×2 (09:40→16:48)
[2018-05-17] MEDS ORDERED: ONDANSETRON 4 MG INJ (10:12)
[2018-05-17] MEDS ORDERED: ONDANSETRON 4 MG INJ IV ×2 (10:30→12:00)
[2018-05-17] MEDS ORDERED: FENTAnyl 50 MCG/ML VIAL IV ×3 (10:30)
[2018-05-17] MEDS ORDERED: KETOROLAC 30 MG INJ IV (10:30)
[2018-05-17] MEDS ORDERED: PROCHLORPERAZINE 10 MG INJ IV (10:30)
[2018-05-17] MEDS ORDERED: DIPHENHYDRAMINE 50 MG INJ IV ×2 (10:30→12:00)
[2018-05-17] MEDS ORDERED: MEPERIDINE 25 MG INJ IV (10:30)
[2018-05-17] MEDS ORDERED: HYDROmorphONE 1 MG/5 ML IV SYRINGE IV ×3 (10:30)
[2018-05-17] MEDS ORDERED: MAGNESIUM SULFATE 4 GM/100 ML 100 ML IV (11:00)
[2018-05-17] MEDS ORDERED: CA GLUCONATE (GM) 10% 10ML INJ IV (11:00)
[2018-05-17] MEDS: MAGNESIUM SULFATE 4 GM/100 ML 100 ML IV (11:43)
[2018-05-17] MEDS ORDERED: NALOXONE (0.4 MG/ML) INJ IV (12:00)
[2018-05-17] MEDS ORDERED: HYDROmorphONE 0.2 MG/ML PCA IV (12:00)
[2018-05-17] MEDS ORDERED: HYDROmorphONE 0.5 MG/0.5 ML SYG IV (12:00)
[2018-05-17] MEDS: MAGNESIUM SULFATE 20 GM/500 ML 500 ML IV ×2 (12:14→22:15)
[2018-05-17] MEDS: KETOROLAC 30 MG INJ IV ×2 (13:23→19:40)
[2018-05-17] MEDS: OXYTOCIN 30 UNITS/LR 500 ML IV (14:57)
[2018-05-17] MEDS: HYDROmorphONE 0.5 MG/0.5 ML SYG IV ×2 (16:48→23:32)
[2018-05-17 18:29] LABS: MAGNESIUM 5.8 mg/dl (1.7-2.5)
[2018-05-17 19:51] LABS: RAPID PLASMA REAGIN NONREACTIVE (NR)
[2018-05-18] MEDS: CEFAZOLIN 2 GM/50 ML (PMX) 50 ML IVPB ×2 (00:32→08:48)
[2018-05-18] MEDS: LACTATED RINGER'S 1,000 ML IV ×2 (02:18→14:50)
[2018-05-18] MEDS: KETOROLAC 30 MG INJ IV (05:16)
[2018-05-18 09:14] LABS: ADD MAN DIFF? NO
[2018-05-18 09:24] LABS: WHITE BLOOD COUNT 7.3 10^3/ul (4.8-10.8)
[2018-05-18 09:24] LABS: BASOPHILS % 0.4 % (0.0-2.0); EOSINOPHILS # 0.1 10^3/ul (0.0-0.5); EOSINOPHILS % 0.8 % (0.0-7.0); HEMOGLOBIN 8.6 g/dl (12.0-16.0); LYMPHOCYTES # 1.4 10^3/ul (0.8-2.9); MEAN CORPUSCULAR HEMOGLOBIN 30.2 pg (29.0-33.0); MEAN CORPUSCULAR HGB CONC 33.1 g/dl (32.0-37.0); MEAN CORPUSCULAR VOLUME 91.2 fl (82.0-101.0); MEAN PLATELET VOLUME 12.9 fl (7.4-10.4); MONOCYTE # 0.4 10^3/ul (0.3-0.9); MONOCYTES % 5.7 % (0.0-11.0); NEUTROPHIL # 5.3 10^3/ul (1.6-7.5); NEUTROPHILS % 73.1 % (39.0-77.0); PLATELET COUNT 120 10^3/UL (140-415); RED BLOOD COUNT 2.85 10^6/ul (4.20-5.40); RED CELL DISTRIBUTION WIDTH 16.7 % (11.5-14.5)
[2018-05-18] MEDS: MAGNESIUM SULFATE 20 GM/500 ML 500 ML IV (09:38)
[2018-05-18 09:39] LABS: MAGNESIUM 7.1 mg/dl (1.7-2.5)
[2018-05-18] MEDS: HYDROmorphONE 0.5 MG/0.5 ML SYG IV (10:51)
[2018-05-18] MEDS: SENNA TAB PO ×2 (12:30→20:29)
[2018-05-18] MEDS: IBUPROFEN 800 MG TAB PO ×2 (13:10→20:29)
[2018-05-18] MEDS: MEPERIDINE 50 MG INJ IM (18:24)
[2018-05-19] MEDS: MEPERIDINE 50 MG INJ IM ×3 (04:04→17:18)
[2018-05-19] MEDS: LACTATED RINGER'S 1,000 ML IV ×2 (04:10→19:00)
[2018-05-19] MEDS: IBUPROFEN 800 MG TAB PO ×2 (10:28→18:49)
[2018-05-19] MEDS: SENNA TAB PO ×2 (10:28→21:06)
[2018-05-19] MEDS ORDERED: IBUPROFEN 800 MG TAB PO ×3 (11:00)
[2018-05-20] MEDS: IBUPROFEN 800 MG TAB PO ×2 (02:55→12:16)
[2018-05-20] MEDS: SENNA TAB PO (10:04)
== END 2018-05-20 15:00 | disposition home or self-care (01) | DRG 765 ==
LOC: L-D 07:37 → PP1 14:56
PROVIDERS: Obstetrics & Gynecology
PROC: 10D00Z1 Extraction of Products of Conception, Low, Open Approach (ICD-10-PCS; principal; 2018-05-17 09:00)
PROC: 3E033VJ Introduction of Other Hormone into Peripheral Vein, Percutaneous Approach (ICD-10-PCS; 2018-05-17 09:00)
DX: O34.211 Maternal care for low transverse scar from previous cesarean delivery (principal); O10.92 Unspecified pre-existing hypertension complicating childbirth; O14.94 Unspecified pre-eclampsia, complicating childbirth; Z3A.37 37 weeks gestation of pregnancy; Z37.0 Single live birth
CPT/HCPCS: 83735; 85025; 85610; 85730; 86592; 86850; 86900; 86901; 86920; 99464

== ENCOUNTER 2019-07-20 15:28 | Emergency (ER) | payer OTHER ==
[2019-07-20 16:06] LABS: ADD UMIC YES; UR ASCORBIC ACID NEGATIVE (NEGATIVE); UR BACTERIA FEW /HPF (NONE SEEN); UR BILIRUBIN (Dip) NEGATIVE (NEGATIVE); UR BLOOD (Dip) 1+ mg/dL (NEGATIVE); UR CLARITY CLEAR (CLEAR); UR COLOR STRAW (YELLOW); UR GLUCOSE (Dip) NEGATIVE (NEGATIVE); UR KETONES (Dip) NEGATIVE (NEGATIVE); UR LEUKOCYTE ESTERASE (Dip) 2+ Leu/ul (NEGATIVE); UR NITRITE (Dip) NEGATIVE (NEGATIVE); UR RBC 0 /HPF (0-5); UR SPECIFIC GRAVITY (Dip) 1.003 (1.003-1.030); UR SQUAMOUS EPITHELIAL CELL FEW /HPF (FEW); UR TOTAL PROTEIN (Dip) NEGATIVE (NEGATIVE); UR UROBILINOGEN (Dip) NEGATIVE (NEGATIVE); UR WBC 20 /HPF (0-5)
[2019-07-20] MEDS: KETOROLAC 30 MG INJ IM (16:22)
[2019-07-20] MEDS: LIDOCAINE 1% (MPF) 5 ML VIAL INFIL (16:26)
[2019-07-20] MEDS: CEFTRIAXONE 1 GM INJ IM (16:26)
== END 2019-07-20 16:47 | disposition home or self-care (01) ==
LOC: FTE 15:28
DX: N30.01 Acute cystitis with hematuria (principal); I10 Essential (primary) hypertension
CPT/HCPCS: 81001; 84703; 87086; 96372; 99284-25